=== PATIENT | female | born 2000 | race Caucasian/White ===

== ENCOUNTER 2022-11-14 13:39 | Outpatient (AMB) | payer BC, SELFPAY ==
--- NOTE | 2022-11-14 13:42 | MHC.OFFVIS ---
Intake Vital Signs 11/14/22 13:44 Height 5 ft 1 in Weight 197 lb BMI 37.2 BP 118/66 Blood Pressure Location Rt brachial Position Sitting Pulse 96 Pulse Source Pulse Oximeter Pulse Oximetry (%) 100 Oxygen Delivery Method Room Air Intake Visit Reasons: Follow up - Confirmed Allergies penicillian Allergy (Severe, Uncoded 08/13/21 11:08) rash Keflex Adverse Reaction (Intermediate, Uncoded 11/14/22 13:47) Unknown Medication List - Last Reconciled 11/14/22 by Magda De La Cruz CNP dexmethylphenidate (Focalin) 5 mg PO DAILY fremanezumab-vfrm (Ajovy) 225 mg subcut q month; 30 days magnesium chloride 64 mg PO BEDTIME multivitamin (Daily Multi-Vitamin tablet) 1 tab PO DAILY ondansetron HCl 4 mg PO Q8H PRN riboflavin (vitamin B2) 100 mg PO DAILY rimegepant (Nurtec ODT) 75 mg PO Q OTHER DAY PRN sertraline (Zoloft) 25 mg PO DAILY HPI HPI Comments History of Present Illness Details 22 y/o female comes for follow up of her chronic migraines. Pt reports Ajovy helped to reduce her migraine frequency and intensity. She had almost daily migraine before Ajovy. Pt reports that after each Ajovy injection patient migraine free for 2.5 weeks and then has almost daily migraine X 1.5 weeks prior to the next injection. The last Ajovy was 11/04. Resting in the dark room and Nurtec help to relieves javier head pressure. Pt reports she sleeps well, also had a sleep study, and it was normal sleep, no sleep apnea. [facility] Family History Mother HTN (hypertension) Father Autoimmune disorder Psoriasis Social History (Updated 11/14/22 @ 13:47 by Coty Rogers) Alcohol intake: never Patient Tobacco Use Status: Never used Tobacco Review of Systems Const All systems reviewed & are unremarkable except as noted in HPI and below ENT Reports Normal hearing present Neuro Reports Normal hearing present Physical Exam Vital Signs: Last Vital Signs Pulse 96 11/14/22 13:44 BP 118/66 11/14/22 13:44 Pulse Ox 100 11/14/22 13:44 Oxygen Delivery Method Room Air 11/14/22 13:44 BMI result Body Mass Index 37.2 Const General: cooperative Nutritional Appearance: obese Orientation/consciousness: patient oriented x3 Neck Neck: Yes full ROM and Yes supple Resp Effort & Inspection: normal respiratory effort and able to speak in complete sentences Neuro General: patient oriented x3 and gait normal Cranial nerves: Yes Bilaterally intact EOM present, Yes Normal facial strength present, Yes Midline tongue present, Yes Symmetric palate elevation present, Yes Normal hearing present, Yes Ability to bilaterally rotate head present and Yes Ability to bilaterally elevate shoulders present Cognition (Neuro): normal cognition Gait exam (Neuro): Normal gait present Motor exam (neuro): 5/5 motor strength present throughout, Pronator motor function not present and no tremor noted Psych Appearance: grossly normal Mental Status: mental status grossly normal Speech and movement: Normal speech and movement present Affect: normal affect Attitude: cooperative Assessment & Plan Assessment & Plan (1) Chronic migraine with aura: Code(s): G43.109 - Migraine with aura, not intractable, without status migrainosus Plan Continue to use Ajovy monthly for migraine prevention, her migraine frequency has improved more than 50%. Continue to use Nurtec 75 mg as needed for acute migraine treatment. Coding Level of Care Code Est Pt Level 3 (50455) Diagnoses Chronic migraine with aura G43.109
[2022-11-14 13:44] VITALS: BP 118/66; PULSE 96; O2SAT 100; BMI 37.2
== END 2022-11-14 14:01 | disposition home or self-care (01) ==
PROVIDERS: PCP Family Medicine; Visit Provider Nurse Practitioner Family
DX: G43.109 Migraine with aura, not intractable, without status migrainosus (principal)
CPT/HCPCS: 99213

== ENCOUNTER → 2022-11-14 13:39 | Outpatient (BNVA) | payer BC, SELFPAY | PROVIDERS: PCP Family Medicine; Visit Provider Nurse Practitioner Family ==

== ENCOUNTER 2024-01-26 13:15 | Outpatient (AMB) | payer BC, SELFPAY ==
--- NOTE | 2024-01-26 13:16 | A.OFFVIS_ITS ---
Vital Signs 01/26/24 13:17 Height 5 ft 1 in Comment pt. refuse to be weighed Intake Visit Reasons: 1yr follow up Intake Note: Patient presents for 1 year follow up Allergies penicillian Allergy (Severe, Uncoded 01/26/24 13:19) rash Keflex Adverse Reaction (Intermediate, Uncoded 01/26/24 13:19) Unknown Medication List - Last Reconciled 01/26/24 by Saima Archibald MD atogepant 60 mg PO DAILY dexmethylphenidate (Focalin) 5 mg PO DAILY fremanezumab-vfrm (Ajovy) 225 mg subcut q month; 30 days magnesium chloride 64 mg PO BEDTIME multivitamin (Daily Multi-Vitamin tablet) 1 tab PO DAILY ondansetron HCl 4 mg PO Q8H PRN riboflavin (vitamin B2) 100 mg PO DAILY sertraline (Zoloft) 25 mg PO DAILY HPI Comments Details: 23 y/o female comes for follow up of her chronic migraines. she reports increased dizziness after her AJovy dose. she has daily headaches the 3 rd and 4 th week after Ajovy. she takes nurtec and rests. It helps some. 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 She saw a neurologist near [place] - he suggested quilipta but she didnt try. She was diagnosed with hypermobile joints. Pt reports she sleeps well, also had a sleep study, and it was normal sleep, no sleep apnea. [facility] Family History Mother HTN (hypertension) Father Autoimmune disorder Psoriasis Social History Alcohol intake: never Patient Tobacco Use Status: Never used Tobacco Review of Systems ENT Reports Normal hearing present Neuro Reports Normal hearing present Physical Exam Const General: cooperative Nutritional Appearance: obese Orientation/consciousness: patient oriented x3 Neck Neck: Yes full ROM and Yes supple Resp Effort & Inspection: normal respiratory effort and able to speak in complete sentences Neuro General: patient oriented x3 and gait normal Cranial nerves: Yes Bilaterally intact EOM present, Yes Normal facial strength present, Yes Midline tongue present, Yes Symmetric palate elevation present, Yes Normal hearing present, Yes Ability to bilaterally rotate head present and Yes Ability to bilaterally elevate shoulders present Cognition (Neuro): normal cognition Gait exam (Neuro): Normal gait present Psych Appearance: grossly normal Mental Status: mental status grossly normal Speech and movement: Normal speech and movement present Affect: normal affect Attitude: cooperative Assessment & Plan Assessment & Plan (1) Chronic migraine with aura: Code(s): G43.109 - Migraine with aura, not intractable, without status migrainosus Category: Medical Qualifiers: Status migrainosus presence: without status migrainosus Intractability: intractable Qualified Code(s): G43.E19 - Chronic migraine with aura, intractable, without status migrainosus Plan Continue to use Ajovy monthly for migraine prevention, her migraine frequency has improved more than 50%. I will trial her on Quilipta 60mg qd for migraine prophylaxis. Medications: New atogepant 60 mg PO DAILY 30 tabs 0RF Discontinued rimegepant (Nurtec ODT) 1 tab as needed - maximum 1 tab per day Discontinued Reason: Doctor's Order 75 mg PO Q OTHER DAY PRN 14 tabs 6RF migraine headache Coding Level of Care Code Est Pt Level 4 (26050) Complex EM visit Add On G2211 Diagnoses Intractable chronic migraine with aura and without status migrainosus G43.E19 Status migrainosus presence: without status migrainosus Intractability: intractable
== END 2024-01-26 13:46 | disposition home or self-care (01) ==
PROVIDERS: PCP Family Medicine; Visit Provider Psychiatry & Neurology Neurology
DX: G43.E19 Chronic migraine with aura, intractable, without status migrainosus (principal)
CPT/HCPCS: 99214

== ENCOUNTER → 2024-01-26 13:15 | Outpatient (BNVA) | payer BC, SELFPAY | PROVIDERS: PCP Family Medicine; Visit Provider Psychiatry & Neurology Neurology ==

== ENCOUNTER 2024-02-24 10:21 | Outpatient (AMB) | payer BC, SELFPAY ==
--- NOTE | 2024-02-24 10:22 | A.OFFVIS_ITS ---
Intake Visit Reasons: 1 mo follow up Intake Note: follow up Allergies penicillian Allergy (Severe, Uncoded 02/24/24 10:22) rash Keflex Adverse Reaction (Intermediate, Uncoded 02/24/24 10:22) Unknown Medication List - Last Reconciled 02/24/24 by Saima Archibald MD dexmethylphenidate (Focalin) 5 mg PO DAILY fremanezumab-vfrm (Ajovy) 225 mg subcut q month; 30 days gabapentin 300 mg PO BEDTIME magnesium chloride 64 mg PO BEDTIME multivitamin (Daily Multi-Vitamin tablet) 1 tab PO DAILY ondansetron HCl 4 mg PO Q8H PRN riboflavin (vitamin B2) 100 mg PO DAILY sertraline (Zoloft) 25 mg PO DAILY HPI Comments Details: 23 y/o female calls for follow up of her chronic migraines. she is unable to tolerate quilipta - reports increased nausea she reports increased dizziness after her AJovy dose. she has daily headaches the 3 rd and 4 th week after Ajovy. she takes nurtec and rests. It helps some. 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 She saw a neurologist near [place] - he suggested quilipta but she didnt try. She was diagnosed with hypermobile joints. Pt reports she sleeps well, also had a sleep study, and it was normal sleep, no sleep apnea. PFSH Family History Mother HTN (hypertension) Father Autoimmune disorder Psoriasis Social History Alcohol intake: never Patient Tobacco Use Status: Never used Tobacco Physical Exam Const General: cooperative Orientation/consciousness: patient oriented x3 Neuro General: patient oriented x3 Telehealth Telehealth Telehealth Platform: Telephone Location of provider rendering services: practice address Location of patient: address on file Patient Identification confirmed using: Name, : Yes Telehealth method: voice only Patient verbally consented to treatment: Yes Patient verbally consented to billing insurance company: Yes Patient informed of any privacy concerns related to visit: Yes Assessment & Plan Assessment & Plan (1) Chronic migraine with aura: Code(s): G43.109 - Migraine with aura, not intractable, without status migrainosus Category: Medical Qualifiers: Status migrainosus presence: without status migrainosus Intractability: intractable Qualified Code(s): G43.E19 - Chronic migraine with aura, intractable, without status migrainosus Plan Continue to use Ajovy monthly for migraine prevention, her migraine frequency has improved more than 50%. I will trial her on gabapentin 300mg qhs for migraine prophylaxis. Medications: New gabapentin 300 mg PO BEDTIME 30 caps 6RF Discontinued atogepant Discontinued Reason: Patient no longer taking 60 mg PO DAILY 30 tabs 0RF Coding Level of Care Code Tele Est Pt Level 3 (20538) Diagnoses Intractable chronic migraine with aura and without status migrainosus G43.E19 Status migrainosus presence: without status migrainosus Intractability: intractable Time Spent (min) 13
== END 2024-02-24 11:14 | disposition home or self-care (01) ==
LOC: HO.HSMS 10:21
PROVIDERS: PCP Family Medicine; Visit Provider Psychiatry & Neurology Neurology
DX: G43.E19 Chronic migraine with aura, intractable, without status migrainosus (principal)
CPT/HCPCS: 99213

== ENCOUNTER → 2024-02-24 10:21 | Outpatient (BNVA) | payer BC, SELFPAY | PROVIDERS: PCP Family Medicine; Visit Provider Psychiatry & Neurology Neurology ==